=== PATIENT | female | born 1930 | race Caucasian/White ===

== ENCOUNTER 2016-11-08 08:50 | Inpatient (IN) | payer OTHER ==
--- NOTE | 2016-11-08 09:27 | EKG Report ---
Test Performed on : 11/08/2016 08:58:44 AM Test Reason : STROKE LIKE SYMPTOMS Blood Pressure : / mmHG Vent. Rate : 077 BPM Atrial Rate : 077 BPM P-R Int : 198 ms QRS Dur : 090 ms QT Int : 406 ms P-R-T Axes : 023 -24 079 degrees QTc Int : 459 ms Normal sinus rhythm. Normal ECG No previous ECGs available Unconfirmed Result
[2016-11-08] MEDS ORDERED: NS 1,000 ML IV PRN ×2 (09:53→12:42)
--- NOTE | 2016-11-08 10:06 | PROVIDER DOCUMENTATION ---
HPI-Neurological Disorder - General Chief Complaint: Numbness Stated Complaint: RT SIDE OF HEAD NUMB,NAUSEA Time Seen by Provider: 11/08/16 09:42 Source: patient Allergies/Adverse Reactions: Patient Allergies Allergy/AdvReac Type Severity Reaction Status Date / Time Penicillins Allergy Severe SWELLING Verified 11/08/16 09:11 iodine Allergy Intermediate ANAPHYLAXIS Verified 11/08/16 09:11 levofloxacin [From Levaquin] Allergy Intermediate ANAPHYLAXIS Verified 11/08/16 09:11 sulfamethoxazole Allergy Intermediate ITCHING Verified 11/08/16 09:11 [From Bactrim] trimethoprim [From Bactrim] Allergy Intermediate ITCHING Verified 11/08/16 09:11 doxycycline Allergy ITCHING Verified 11/08/16 09:11 adhesive tape AdvReac Unknown Verified 11/08/16 09:11 amoxicillin AdvReac VOMITING Verified 11/08/16 09:11 Home Medications: Home Medication List Medication Instructions Recorded Confirmed Last Taken Type Aspirin 81 mg PO DAILY 05/10/12 10/05/16 11/07/16 20:00 History Metoprolol [Lopressor] 50 mg PO BID 05/10/12 10/05/16 11/08/16 08:00 History Triamterene/Hydrochlorothiazid 1 each PO EVERY OTHER DAY 05/10/12 10/05/1611/08 07:00 History [Triamterene-Hctz 37.5-25 mg Cp] Tramadol [Ultram] 50 mg PO BID 10/09/13 10/05/16 11/07/16 20:00 History Esomeprazole [Nexium] 40 mg PO PRN PRN 09/19/16 10/05/16 11/07/16 20:00 History Estrogen Vag Cream [Premarin Vag 1 applicator VAG HS 09/19/16 10/05/16 11/07/16 20:00 History Cream] Zolpidem [Ambien] 5 mg PO QHS 10/05/16 10/05/16 11/07/16 20:00 History Gabapentin 300 mg PO TID #30 capsule 10/14/16 11/08/16 07:00 Rx - History of Present Illness-Neuro Nature of Presenting Problem: patient is a 85 y/o f that presents to the ER with 1 to 2 months of right sided head numbness and tingling. patient reports feeling her blood isn't flowing to her brain. she denies any facial droop, slurred speech, weakness to one side, or confusion. She hasn't seen her pcp yet. Headache Location: reports: frontal (right), occipital (right), parietal (right) Severity: reports: mild Onset/Duration: reports: gradual, other (1 to 2 months) Timing: reports: still present, constant Context: reports: paresthesia. denies: fever, impaired speech, facial droop, falling, seizure activity Character of Altered Mental Status: reports: N/A Character of Deficits: reports: altered sensation New weakness or altered sensation location:: reports: right facial, other ( right scalp) Cognitive Baseline: alert, oriented x3 Gait Baseline: walks without assistance Associated Symptoms: reports: headache, paresthesia. denies: dizziness, confusion, neck/back pain, fever/chills, nausea, numbness in legs/feet, sleepy, slurred speech, tingling in legs/feet, vomiting Similar Symptoms Previously?: No Recently seen or treated by another doctor?: No Review of Systems - Adult - REVIEW OF SYSTEMS - ADULT Constitutional: denies: chills, fever Eyes: denies: decreased vision, blurred vision, double vision, eye pain Ears, Nose, Mouth & Throat: denies: ear discharge, ear pain, sinus problem, throat pain, throat swelling Cardiovascular: denies: chest pain, palpitations, syncope Respiratory: denies: chronic cough, cough, shortness of breath, wheezing Gastrointestinal: denies: abdominal pain, diarrhea, nausea, vomiting Genitourinary: reports: no symptoms reported Musculoskeletal: denies: back pain, joint pain, neck pain Integumentary: reports: no symptoms reported Neurological: reports: dizziness/vertigo, headache/migraines, numbness, paresthesia. denies: ataxia, loss of balance, seizure, slurred speech, syncope , tremors Psychiatric: reports: no symptoms reported Endocrine: reports: no symptoms reported Hematologic/Lymphatic: reports: no symptoms reported Allergic/Immunologic: reports: no symptoms reported All Other Systems: Reviewed and Negative Past History - Adult - PAST MEDICAL HISTORY-ADULT Review of Records: reports: Old Records Reviewed, Nursing Assessment Review, Medications Reviewed Cardiovascular: reports: HTN, hyperlipidemia Gastrointestinal: reports: GERD Genitourinary: reports: kidney disease, retention, chronic UTI's Musculoskeletal: reports: other (joint pain with hyperlipadema) Neurological: reports: other (neuropathy) Other Conditions: reports: other cancer (skin) - PRIOR SURGERIES/PROCEDURES Surgical/Procedure History: reports: hysterectomy, other (cataract removal, bladder stretch) - IMMUNIZATION STATUS Childhood Immunizations: See Nurse Assessment Flu Vaccine: See Nurse Assessment - FAMILY HISTORY Family History: reviewed, not pertinent - SOCIAL HISTORY Smoking: non-smoker Living Situation: family Physical Exam- Neurological - Physical Exam-Neuro Initial Vital Signs Reviewed: Yes General Appearance: alert, no apparent distress Eye Exam: bilateral eye: normal inspection, PERRL HENMT: normocephalic/atraumatic, moist mucous membranes, normal ENT inspection, TMs normal Head Injury: no evidence of injury. 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 Exam: normal hearing, normal speech, PERRL Motor/Sensory: no motor deficit, no sensory deficit, no pronator drift 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 as tested, no motor/sensory deficits Integumentary: normal color, normal turgor, warm/dry Psych/Mental Status: normal mood/affect, normal thought content, normal thought process, oriented x 3 - Glascow Coma Scale Best Eye Response: (4) open spontaneously Best Verbal Response: (5) oriented Best Motor Response: (6) obeys commands Total Glascow Score: 15 Progress - PLAN OF CARE/RESULTS Progress/Plan/Lab Results: plan of care-neuro work up 1123-hospitalist paged for admission - EKG 1 Time of EKG reading by physician:: 08:58 EKG Read and Signed by:: Kate Lacy EKG Interpretation (*Must complete 3 of following elements*): Normal Rate: 77 Rhythm: NSR Prospect: normal QRS: normal HI Interval: normal ST Wave: normal - XRAY 1 XRAY Study: Chest Impression: Normal XRAY Interpretation: nad - CT/MRI 1 CT Study: Head Impression: Abnormal CT Results: mild chronic microvascular changes, nap, no blood - CONSULTS/PCP/HOSPITALIST Notification #1 *Consult/PCP/Hospitalist*: (hospitalist) Time Discussed: 11:37 Consult Disposition: Will see in ED, Admit Departure - Departure Time of Disposition Order: 11:23 DIAGNOSIS: Hyponatremia, Dehydration, Renal insufficiency, Numbness, Jerking, Paresthesia Disposition: ADMITTED INPATIENT 09 Certified Medical Emergency: Emergent Condition: Stable Referrals: Elicia Martinez MD [Primary Care Provider] - Attestation - Scribe Verification/Attestation Scribe:: Rashel Leon Acting as Scribe for:: aKte Lacy Scribe documention review:: This chart was documented by a scribe and accurately reflects the service the provider performed and the decisions made by the provider. Physician Attestation - Physician Attestation I, the provider, attest to the following statement:: Kate Lacy Physician documentation Attestation:: This documentation recorded by the scribe accurately reflects the service I personally performed and the decisions made by me.
[2016-11-08 10:23] LABS: MANUAL DIFF NEEDED? NO
[2016-11-08 10:29] LABS: BASO% 0.1 % (0.0-0.8); EOS# 0.07 X1000 (0.0-0.7); HEMATOCRIT 35.8 % (37.0-47.0); HEMOGLOBIN 12.8 g/dL (12.0-16.0); IMM GRAN# 0.03 X1000 (0.0-0.04); IMM GRAN% 0.4 % (0.0-0.5); LYMPH# 1.52 X1000 (1.2-3.4); LYMPH% 22.1 % (20.5-51.1); MCHC 35.8 g/dL (33-37); MCV 89.5 FL (81-99); MONO# 0.57 X1000 (0.11-0.59); MONO% 8.3 % (1.7-9.3); NEUT% 68.1 % (42.2-75.2); PLT 228 X1000 (130-400)
[2016-11-08 10:46] LABS: ALBUMIN 3.5 g/dL (3.5-5.0); CALCIUM 8.3 mg/dL (8.8-10.2); POTASSIUM 3.7 mmol/L (3.5-5.1); TOTAL BILIRUBIN 0.35 mg/dL (0.20-1.00)
--- NOTE | 2016-11-08 10:46 | Diag Imaging Result Document ---
PROCEDURE NAME: CHEST-PORTABLE - 11/08/2016 SINGLE FRONTAL RADIOGRAPH OF THE CHEST: COMPARISON: 09/16/2016. FINDINGS: The lungs are grossly clear. There is no discrete pleural fluid collection or evidence of pneumothorax. The cardiomediastinal silhouette and upper airway are grossly unremarkable. IMPRESSION: No evidence of acute chest pathology.
[2016-11-08 10:49] LABS: PROTIME 9.5 Seconds (9.2-11.7); PTT 24.5 Seconds (22.0-36.0)
[2016-11-08 10:50] LABS: INR 0.93
--- NOTE | 2016-11-08 11:04 | Diag Imaging Result Document ---
PROCEDURE NAME: HEAD W/O CONTRAST - 11/08/2016 CT HEAD WITHOUT CONTRAST: TECHNIQUE: A dose reduction protocol was used. No comparison exam. FINDINGS: There are mild chronic-appearing microvascular ischemic changes. There is no indication of recent infarct, although acute infarcts may not be immediately visible. There is no evidence of hemorrhage, mass effect, midline shift, or hydrocephalus. IMPRESSION: Mild chronic microvascular ischemic changes. No visible acute process. No hemorrhage or mass effect.
[2016-11-08 11:05] LABS: URINE CULTURE NEEDED? NO; URINE MICRO REVIEW NEEDED? NO; URINE SOURCE CLEAN CATCH
[2016-11-08 11:12] LABS: BILIRUBIN URINE NEGATIVE (NEGATIVE); BLOOD URINE NEGATIVE (NEGATIVE); COLOR STRAW; GLUCOSE URINE NEGATIVE (NEGATIVE); LEUKOCYTES URINE NEGATIVE (NEGATIVE); NITRITE URINE NEGATIVE (NEGATIVE); PH URINE 6.5; PROTEIN URINE NEGATIVE (NEGATIVE); SP GRAVITY URINE 1.005; TURBIDITY URINE CLEAR (CLEAR); UROBILINOGEN URINE NORMAL (NORMAL)
[2016-11-08 11:13] LABS: UR EPITHELIAL CELLS <10 /HPF (<10); URINE BACTERIA NEGATIVE /HPF; URINE WBC <10 /HPF (<10)
[2016-11-08 11:34] LABS: UR AMPHETAMINES QUAL NONE DETECTED (NONE DETECT); UR BARBITUATES QUAL NONE DETECTED (NONE DETECT); UR BENZODIAZEPIN QUAL NONE DETECTED (NONE DETECT); UR CANNABINOIDS QUAL NONE DETECTED (NONE DETECT); UR COCAINE QUAL NONE DETECTED (NONE DETECT); UR METHADONE QUAL NONE DETECTED (NONE DETECT); UR OPIATES QUAL NONE DETECTED (NONE DETECT); UR OXYCODONE QUAL NONE DETECTED (NONE DETECT); UR PCP QUAL NONE DETECTED (NONE DETECT)
--- NOTE | 2016-11-08 13:34 | HISTORY AND PHYSICAL ---
PRIMARY CARE PROVIDER: Dr. Martinez. PRIMARY UROLOGIST: Dr. Diaz. CHIEF COMPLAINT: Head numbness. HISTORY OF PRESENT ILLNESS: Ms. Iva Du is an 85-year-old female with a history of neuropathy, hypertension, hyperlipidemia, bladder outlet obstruction, urethral strictures, who apparently for the last month has been having some head numbness. She felt like it was worse last night. She denies pain. She denies having any speech difficulties or facial asymmetry. She did state that it was a little difficult to open her right eye this morning. She also states that she has had some decrease in memory. When she turns her head to the right she gets a little dizzy. Otherwise no balance issues. Denies hearing difficulties. Denies fever, chills , vomiting, or diarrhea. She does have a little nausea with her dizziness on occasion. Workup revealed that she had a low sodium level and elevated BUN and creatinine. Will follow up for dehydration, MATHEW, hyponatremia. We will consult neurology for complaints of head numbness. PAST MEDICAL HISTORY: Hypertension, neuropathy, hyperlipidemia, arthritis, GERD , bladder outlet obstruction, urethral stricture. She self catheterizes every night before bed. PAST SURGICAL HISTORY: Hysterectomy, cystocele repair, cataract, skin cancer removed, cystoscopies, urethral dilatations, and she has had a finger and toe surgery. SOCIAL HISTORY: Denies tobacco, alcohol, or illicit drug use. She lives at home alone. FAMILY HISTORY: Positive for diabetes and heart disease. REVIEW OF SYSTEMS: Fourteen point review of systems were complete and all were negative except for those mentioned in the above HPI. ALLERGIES: Penicillin, iodine, levofloxacin, sulfa, trimethoprim, doxycycline, adhesive tape, and amoxicillin. HOME MEDICATIONS: Aspirin 81 mg p.o. daily, Lopressor 50 mg p.o. twice daily triamterene/hydrochlorothiazide 37.5/25 mg p.o. every other day, Ultram 50 mg p.o. twice daily, Nexium 40 mg p.o. as needed, Premarin vaginal cream nightly, Ambien 5 mg p.o. nightly, and Neurontin 300 mg p.o. 3 times a day. LABORATORY DATA: White blood cells 6,000, hemoglobin 12, hematocrit 35, platelet count 228,000. INR 0.93. PTT is 24.5. Sodium 126, potassium 3.7, BUN 31, creatinine 2.5, GFR 18, glucose 127, calcium 8.3, total bilirubin 0.35, AST 15, ALT 10. Troponin less than 0.01. Protein 6.0. Urinalysis 10-20 red blood cells, otherwise negative. Urine drug screen negative. IMAGING: Head CT: Mild chronic microvascular ischemic changes. No visible acute process no hemorrhage or mass effect. Chest x-ray: No acute findings. EKG: Sinus rhythm , rate 77, QTc 459. PHYSICAL EXAMINATION: VITAL SIGNS: Temperature is 98.5 degrees, heart rate 69, respiratory 16, blood pressure 184/83, O2 saturation 98% on room air. She is 5 feet 1 inch tall, 140 pounds, BMI 26.5. GENERAL: Ms. Du is an 85-year-old female. She is in no acute distress. She is able to answer all questions appropriately. HEENT: Atraumatic, normocephalic. Pupils equal, round, reactive to light. Extraocular movements intact. Mucous membranes are dry. She is wearing glasses. NECK: No JVD or carotid bruits noted. CARDIOVASCULAR: S1, S2. Regular rate and rhythm. No rubs, gallops, murmurs. PULMONARY: Clear to auscultation. Bilateral breath sounds. No accessory muscle use or work of breathing noted. GI: Soft, nontender, nondistended. Positive bowel sounds x4. EXTREMITIES: No edema noted. There are +2 dorsalis and radial pulses. NEUROLOGIC: Alert and oriented x4. Moves all extremities equally. Complains of numbness throughout her face and head. No other neurological symptoms. Cranial nerves 2 through 12 intact. SKIN: Warm, dry, intact. ASSESSMENT AND PLAN: 1. Complains of head numbness. Will consult neuro. Head CT is negative. 2. Acute kidney injury secondary to dehydration. We will do IV fluid hydration and some urine labs. Will hold her hydrochlorothiazide. 3. Hypertension. Continue metoprolol. 4. Neuropathy. Continue Neurontin and Ultram. 5. Hyperlipidemia. Continue home medications. 6. Arthritis. Continue pain medication at home regimen. 7. Bladder outlet obstruction and urethral strictures with dilatation in the past. She is to self cath at bedtime. Is followed as outpatient by Dr. Diaz. 8. Deep venous thrombosis prophylaxis. Will do heparin. 9. Gastrointestinal prophylaxis. Proton pump inhibitor. Dictated by SHOAIB Walter for Tony Cardozo MD [facility]
[2016-11-08] MEDS ORDERED: TYLENOL PO PRN (14:02)
[2016-11-08] MEDS ORDERED: ZOFRAN IV PRN (14:02)
[2016-11-08 14:12] LABS: UR CREAT RANDOM 42.3 mg/dL (11-20)
--- NOTE | 2016-11-08 14:18 | CONSULTATION ---
DATE OF CONSULTATION: 11/08/2016 NEUROLOGY CONSULT NOTE: Ms. Du is 85 years old. She reports having some numbness over the right side of her head since this morning. History is that she has had a sense of numbness across both sides of her head lasting a few hours or all day from time to time in the last month or two. This morning, possibly for the first time, symptoms seemed mostly right -sided. In retrospect, she is not certain that there has not been unilateral head numbness in the past. Yesterday, when she woke, she had a sense that her right eyelid was stuck shut. She gradually got that open. She did not check her appearance in the mirror to see if there was any facial drooping or other asymmetry. She noticed some blurred vision throughout the day yesterday. That was mostly global blurred vision without focal loss of visual field and without diplopia. She has occasional numbness in both hands in the night, sometimes waking her from sleep. She has not had recent head injury. She had serious head injury with possible brief loss of consciousness in the 1970s. She has never had diagnosed stroke, seizure, other neurologic event. She does not use ethanol. She has a prescription for zolpidem which is longstanding and she has been taking that more regularly in the last few weeks. She takes tramadol averaging 50 mg 1 tablet at night recently. She added gabapentin about a month ago for management of "neuropathy." She has several other medicines including daily aspirin, but there is nothing on her medicine list that likely would be associated with encephalopathy. Workup here includes noncontrast CT of the head today reported unremarkable. Urine drug screen was all negative. Sodium was 126. Her BUN was 31 and creatinine 2.5. On review of computer records, last check 09/19/2015 showed BUN 18 and creatinine 0.9 then. She reports a dose of doxycycline associated with "stinging all over" in the last month or so. On exam, Ms. Du is awake, alert, attentive, appropriate, oriented. She seems cognitively intact. She recognized me from my office visit with her 5 years ago. Speech is not dysarthric. Language function is intact. Memory is good. Head and neck are unremarkable. Visual mcqueen are full tested by confrontational finger counting. Extraocular movements are full. Facial motility is a little bit diminished bilaterally, but symmetric. Gag is intact. Tongue is midline. She can hear. Shoulder shrug is equal. Strength is normal in the arms and legs. Tone is symmetric in the limbs. She did well on [id number] testing bilaterally. She has good pinprick appreciation on careful testing over the face and scalp bilaterally. I did not test her gait. Reflexes are absent at the ankles, 1+ at the wrists. IMPRESSION: 1. Subjective right-sided head numbness. I do not find a definite objective neurologic deficit now. She reports previous sense of bilateral head numbness lasting part of a day or all day in the last month or two. I do not have an explanation for this. 2. Occasional numbness in the hands waking her from sleep. This sounds like carpal tunnel syndrome. 3. Ankle areflexia. This is consistent with her reported peripheral neuropathy. Reason for her neuropathy is not clear to me at this time. She reports no previous diagnosis of diabetes mellitus. 4. Lab work shows significant elevation of BUN and creatinine compared to her baseline. I do not have any urgent suggestions. I will wait on results of workup as ordered. Thanks for asking me to see Ms. Du. [facility]
[2016-11-08] MEDS: NEURONTIN PO SCH ×3 (17:28→17:31)
[2016-11-08] MEDS: LOPRESSOR PO SCH (23:48)
[2016-11-08] MEDS: HEPARIN SUBQ SCH (23:48)
[2016-11-08] MEDS: AMBIEN PO SCH (23:49)
[2016-11-08] MEDS: ULTRAM PO SCH (23:49)
[2016-11-09] MEDS: PREMARIN VAG CREAM VAG SCH ×2 (03:57→21:00)
[2016-11-09 06:43] LABS: MANUAL DIFF NEEDED? NO
[2016-11-09 06:48] LABS: BASO% 0.4 % (0.0-0.8); EOS# 0.08 X1000 (0.0-0.7); EOS% 1.7 % (0.0-10.0); HEMATOCRIT 32.9 % (37.0-47.0); HEMOGLOBIN 11.6 g/dL (12.0-16.0); LYMPH# 1.89 X1000 (1.2-3.4); LYMPH% 40.4 % (20.5-51.1); MCH 31.6 PG (27-31); MCHC 35.3 g/dL (33-37); MCV 89.6 FL (81-99); MONO# 0.38 X1000 (0.11-0.59); MONO% 8.1 % (1.7-9.3); MPV 9.9 FL (7.4-10.4); NEUT% 49.4 % (42.2-75.2); PLT 218 X1000 (130-400); RBC 3.67 XMIL (4.2-5.4)
[2016-11-09 06:56] LABS: HEMOGLOBIN A1C 5.8 % (4.8-6.0)
[2016-11-09 07:02] LABS: INR 0.95; PROTIME 9.7 Seconds (9.2-11.7); PTT 25.8 Seconds (22.0-36.0)
[2016-11-09 07:11] LABS: ALBUMIN 2.9 g/dL (3.5-5.0); CALCIUM 8.4 mg/dL (8.8-10.2); MAGNESIUM 1.8 mg/dL (1.5-2.7); POTASSIUM 3.4 mmol/L (3.5-5.1); TOTAL BILIRUBIN 0.27 mg/dL (0.20-1.00); TOTAL PROTEIN 5.5 g/dL (6.3-8.3)
[2016-11-09] MEDS: PRILOSEC PO SCH (07:54)
[2016-11-09] MEDS: NEURONTIN PO SCH ×4 (07:56→17:10)
[2016-11-09 08:12] LABS: FREE T4 0.94 ng/dL (0.93-1.70)
[2016-11-09] MEDS ORDERED: KLOR-CON POWDER PACKET PO ONE (08:27)
--- NOTE | 2016-11-09 11:15 | PROGRESS NOTE ---
DATE: 11/09/2016 Ms. Du has had a stable course. She reports the sense of numbness of the head has resolved. She has a little bit of headache but not remarkable now. She believes headache does not need additional attention at this point. I do not have any new thoughts from neurologic standpoint. Thanks for asking me to see Ms. Du. [facility]
[2016-11-09] MEDS: LOPRESSOR PO SCH ×2 (11:17→20:59)
[2016-11-09] MEDS: ASPIRIN PO SCH (11:18)
[2016-11-09] MEDS: ULTRAM PO SCH ×2 (11:18→20:59)
[2016-11-09] MEDS: HEPARIN SUBQ SCH ×2 (11:18→20:59)
[2016-11-09] MEDS ORDERED: NS 1,000 ML IV PRN (12:34)
--- NOTE | 2016-11-09 16:22 | PROGRESS NOTE ---
DATE: 11/09/2016 SUBJECTIVE: This patient states that she is feeling better. She is still complaining of mild numbness at the level of the face and also hands. She denies nausea, vomiting, diarrhea, constipation. She is complaining of right middle back pain, and this patient has been placed on tramadol. OBJECTIVE: Vital Signs: Temperature 98.1 degrees, pulse 77, respiratory rate 16, blood pressure 132/57, oxygen saturation 98 on room air. HEENT: Head normocephalic. No trauma. PERRLA. Neck: Supple. No JVD. No masses. Central trachea. Cardiovascular: RRR. No murmurs. Chest: Clear to auscultation. No wheezing. No rales. Abdomen: Soft, nontender, nondistended. No hepatosplenomegaly. Neurological: The patient is alert. She is oriented x3. She is complaining of numbness on her face and head and hands. No other neurological symptoms. ASSESSMENT AND PLAN: 1. Numbness at the level of the head and face, no reasonable explanation for that. We will continue to monitor. Neurological Department is following this patient as well. 2. Acute kidney injury, likely secondary to dehydration. The kidney function is getting better. The creatinine decreased from 2.5 to 1.9. We will continue to monitor. 3. Hyponatremia. This is getting better as well. The sodium increased from 126-133, we will continue to monitor. 4. Neuropathy. Continue with Neurontin. 5. Hyperlipidemia. Continue with home medications. 6. Arthritis. Continue pain medication at home regimen. 7. Bladder outlet obstruction and with a urethral stricture with dilation in the past. She is to self cath at bedtime. I recommended to do this 3 times a day at least. Her urologist recommended to do this 4 times a day but another doctor told her that at bedtime is going to be just fine. 8. DVT prophylaxis. Continue with heparin. 9. GI prophylaxis. Continue with PPIs.
[2016-11-09] MEDS: AMBIEN PO SCH (20:59)
[2016-11-09] MEDS ORDERED: COLACE PO PRN (21:34)
[2016-11-10 06:26] LABS: HEMOGLOBIN 11.3 g/dL (12.0-16.0); IMM GRAN# 0.03 X1000 (0.0-0.04); IMM GRAN% 0.4 % (0.0-0.5); MANUAL DIFF NEEDED? NO
[2016-11-10 06:31] LABS: BASO% 0.1 % (0.0-0.8); EOS# 0.07 X1000 (0.0-0.7); HEMATOCRIT 32.6 % (37.0-47.0); LYMPH# 1.47 X1000 (1.2-3.4); LYMPH% 20.9 % (20.5-51.1); MCH 31.5 PG (27-31); MCHC 34.7 g/dL (33-37); MCV 90.8 FL (81-99); MONO# 0.56 X1000 (0.11-0.59); NEUT% 69.6 % (42.2-75.2); PLT 205 X1000 (130-400); RBC 3.59 XMIL (4.2-5.4)
[2016-11-10] MEDS: PRILOSEC PO SCH (06:37)
[2016-11-10 06:45] LABS: CALCIUM 7.9 mg/dL (8.8-10.2); POTASSIUM 3.8 mmol/L (3.5-5.1)
[2016-11-10] MEDS: LOPRESSOR PO SCH (10:14)
[2016-11-10] MEDS: NEURONTIN PO SCH ×2 (10:14→13:44)
[2016-11-10] MEDS: ASPIRIN PO SCH (10:14)
[2016-11-10] MEDS: HEPARIN SUBQ SCH (10:14)
[2016-11-10] MEDS: ULTRAM PO SCH (10:14)
[2016-11-10 11:46] VITALS: BP 147/53
--- NOTE | 2016-11-11 11:54 | DISCHARGE SUMMARY ---
ADMISSION DATE: 11/08/2016 DISCHARGE DATE: 11/10/2016 CONSULTATIONS: Dr. Rasheed Bermudez with Neurology. PERTINENT PROCEDURES: Head CT showed mild chronic microvascular ischemic changes. No visible acute processes. No hemorrhage or mass effect. DISCHARGE DIAGNOSES: 1. Numbness at the level of the head and face with no reasonable explanation. Followed by Dr. Bermudez with Neurology. He did not find any objective neurological deficit. There were no urgent suggestions. Head CT showed mild chronic microvascular changes. No visible acute processes and it is now resolved. 2. Acute kidney injury secondary dehydration. This has improved. BUN is 23, creatinine 1.4 at discharge. On admission she was 31 and 2.5. 3. Neuropathy. Continue with Neurontin. 4. Hyponatremia, resolved. 5. Hyperlipidemia. Continue with home medications. 6. Arthritis. Continue with home regimen. 7. Bladder outlet obstruction with urethral stricture with dilatation in the past. Patient does self cath at bedtime. Dr. Chirinos recommended at least 3 times a day. Her urologist recommended her to do this 4 times a day but another doctor told her that at bedtime was going to be just fine. HOSPITAL COURSE: Briefly. Ms. Du is an 85-year-old female, with a history of neuropathy, hypertension, hyperlipidemia, bladder obstruction outlet, urethral stricture with a dilatation in the past. Apparently for the last month has been having some head numbness. She felt like it was worse prior to the night of her admission. There was no pain. She denied any speech difficulty or facial asymmetry. She did state that it was a little difficult to open her right eye on the day of admission, and had some decrease in memory. When she turns her head to the right she does get a little dizzy. Otherwise no balance. No hearing difficulties. No recent illnesses besides a little nausea with her dizziness on occasion. Workup revealed a low sodium as well as an elevated BUN and creatinine. She was started on IV fluids for acute kidney injury, dehydration and hyponatremia with a Neurology consult. Head CT was negative. Neurology was consulted. They did not have any urgent suggestions. The patient had a stable course. Her symptoms have now resolved. Dr. Brown assessed the patient and feels she is appropriate for discharge today. VITAL SIGNS: Temperature 97.8 degrees, heart rate 68, respirations 20, blood pressure 147/53, O2 is 98%. DISCHARGE MEDICATIONS: 1. Aspirin 81 mg p.o. daily. 2. Lopressor 50 mg p.o. b.i.d. 3. Ultram 50 mg p.o. b.i.d. 4. Nexium 40 mg p.o. p.r.n. 5. Premarin vaginal cream 1 applicator vaginal at bedtime. 6. Ambien 5 mg p.o. at bedtime. 7. Gabapentin 300 mg p.o. t.i.d. FOLLOWUP: Patient is being discharged home. She is to follow up with her primary care physician, Dr. Elicia Martinez. She will need to follow up hopefully tomorrow or on Monday. The patient will need to hydrate orally with fluids and will need to closely have her BUN and creatinine followed. Patient can return to the ED for any worsening of symptoms. Discharge time 35 minutes. Dictated by SHOAIB Roberts for Michael Lazaro MD [facility]
--- NOTE | 2016-11-12 09:00 | Carotid Study ---
DATE: 11/08/2016 PROCEDURE: Carotid duplex imaging. REFERRING PHYSICIAN: Tony Cardozo MD. INTERPRETING PHYSICIAN: Jaxson Roche MD. TECH: [place]. INDICATIONS: Dizziness. OBSERVED DATA RIGHT LEFT Brachial Blood Pressure Carotid Pulse Bruits: Carotid/Sub DIAGRAM OF ULTRASOUND IMAGING R L RIGHT INT EXT INT EXT LEFT Duncan (cm/s) Duncan (cm/s) Subclavian 73/0 Subclavian 62/0 CCA Proximal 62/8 CCA Proximal 48/8 CCA Distal 53/10 CCA Distal 60/11 Bulb 45/7 Bulb 52/9 ICA Proximal 48/8 ICA Proximal 55/8 ICA Mid 48/10 ICA Mid 55/12 ICA Distal 67/19 ICA Distal 69/19 ECA 53/0 ECA 51/0 Vertebral 57/15 Vertebral 31/0 ICA/CCA Ratio 1.1 ICA/CCA Ratio 1.2 % Stenosis % Stenosis FINDINGS: There is some mild intimal disease at the distal common carotid and proximal internal carotid artery with some mild-appearing plaque in the proximal internal carotid artery. On the left side, there is likewise some intimal disease at the distal common carotid and bulb area with some plaque extending into the proximal internal carotid artery. There is antegrade vertebral flow bilaterally. INTERPRETATION: Mild intimal disease and atherosclerotic plaque in the common carotid bulbs and internal carotid arteries bilaterally. These are not hemodynamically significant.
== END 2016-11-10 15:19 | disposition home or self-care (01) | DRG 683 ==
LOC: ED 08:50 → EDIPHOLD 13:03 → 4N 13:48
PROVIDERS: ATTEND Internal Medicine
DX: N17.9 Acute kidney failure, unspecified (principal); E87.1 Hypo-osmolality and hyponatremia; G62.9 Polyneuropathy, unspecified; R20.0 Anesthesia of skin; I10 Essential (primary) hypertension; E78.5 Hyperlipidemia, unspecified; K21.9 Gastro-esophageal reflux disease without esophagitis; Z87.440 Personal history of urinary (tract) infections; Z85.828 Personal history of other malignant neoplasm of skin; M19.90 Unspecified osteoarthritis, unspecified site; N32.0 Bladder-neck obstruction; Z83.3 Family history of diabetes mellitus; Z79.899 Other long term (current) drug therapy; Z79.82 Long term (current) use of aspirin; Z79.890 Hormone replacement therapy
CPT/HCPCS: 70450; 71010; 80048; 80053; 80061; 81001; 82550; 82570; 82948; 83036; 83721; 83735; 84300; 84439; 84443; 84484; 84540; 85025; 85610; 85730; 93005; 93880; G0480; J1644; J7030; 80324; 80345; 80346; 80349; 80353; 80358; 80361; 80365; 83992